=== PATIENT | male | born 1950 | race Two or more races ===

== ENCOUNTER 2021-03-05 09:11 | Observation (INO) | payer MEDICARE ==
[2021-03-03 16:48] LABS: BASOPHILS % 0.6 % (0.0-1.0); EOSINOPHILS # (AUTO) 0.1 (0.0-0.4); EOSINOPHILS % 1.5 % (0.0-6.0); HEMATOCRIT 34.9 % (38.2-49.6); HEMOGLOBIN 11.4 g/dL (14.0-18.0); LYMPHOCYTES # (AUTO) 1.3 (1.0-3.2); LYMPHOCYTES % 20.2 % (18.0-39.1); MEAN CORPUSCULAR HEMOGLOBIN 29.2 pg (28-32); MEAN CORPUSCULAR HGB CONC 32.7 g/dL (31-35); MEAN CORPUSCULAR VOLUME 89.5 fL (81-99); MONOCYTES # (AUTO) 0.5 (0.2-0.8); MONOCYTES % 7.1 % (4.4-11.3); NEUTROPHILS # (AUTO) 4.7 (2.1-6.9); NEUTROPHILS % 70.1 % (38.7-80.0); PLATELET COUNT 214 x10e3/uL (140-360); RED CELL DISTRIBUTION WIDTH 13.2 % (11.7-14.4)
[2021-03-03 16:49] LABS: ANION GAP 10.7 mmol/L (8-16); CALCIUM 8.4 mg/dL (8.4-10.2); CREATININE, SERUM 1.53 mg/dL (0.72-1.25); POTASSIUM 4.7 mmol/L (3.5-5.1)
[~2021-03-05] VITALS: Ht 165.1 cm; Wt 73.2 kg
[~2021-03-05 09:11] MED LIST: IOPAMIDOL 300MG/ML 50ML INFUS..BTL IV ONE
[2021-03-05] MEDS ORDERED: JANUVIA100 MG PO (09:46)
[2021-03-05] MEDS ORDERED: LOSARTAN POTASS50 MG PO (09:46)
[2021-03-05] MEDS ORDERED: FLOMAX0.4 MG PO (09:46)
[2021-03-05] MEDS ORDERED: MOBIC15 MG PO (09:46)
[2021-03-05] MEDS ORDERED: KETOROLAC PO (09:46)
[2021-03-05] MEDS ORDERED: TYLENOL # 31 EA PO (09:46)
[2021-03-05] MEDS ORDERED: METFORMIN HCL500 MG PO (09:46)
[2021-03-05] MEDS ORDERED: SODIUM CHLORIDE 0.9% 50ML 50 ML ONE (10:05)
[2021-03-05] MEDS ORDERED: CEFTRIAXONE 1 GM VIAL ONE (10:05)
[2021-03-05] MEDS ORDERED: FENTANYL CITRATE/PF 100MCG/2 ML INJ ONE ×2 (11:44→12:28)
[2021-03-05] MEDS ORDERED: ACETAMINOPHEN/CODEINE 300MG - 30MG TAB ONE (12:55)
[2021-03-05] MEDS ORDERED: PROPOFOL IV EMULSION 10 MG/ML 20 ML VIAL ONE (13:48)
[2021-03-05] MEDS ORDERED: DEXAMETHASONE SOD PHOS INJ 4 MG/ML VIAL ONE (13:48)
[2021-03-05] MEDS ORDERED: ONDANSETRON HCL INJ 2MG/ML 2ML 2 MG/ML VIAL ONE (13:48)
[2021-03-05] MEDS ORDERED: POVIDONE IODINE 0.05% 0.05 % ML PO ONE (13:48)
[2021-03-05] MEDS ORDERED: SEVOFLURANE INHAL SOLN 250 ML PEN BTL ONE (13:48)
[2021-03-05] MEDS ORDERED: LIDOCAINE HCL 2% LOCAL INJ 5 ML SDV VIAL INJ ONE (13:48)
[2021-03-05 16:00] VITALS: BP 139/91
[2021-03-05] MEDS: ACETAMINOPHEN/CODEINE 300MG - 30MG TAB PO PRN ×2 (16:17→21:20)
[2021-03-05 16:41] VITALS: BP 139/91
[2021-03-05] MEDS ORDERED: DEXTROSE 50% SYRINGE 50 ML IV PRN (16:45)
[2021-03-05] MEDS: INSULIN LISPRO 100 UNIT/1 ML 3ML VIAL SQ SCH ×2 (17:00→21:22)
[2021-03-05 22:30] VITALS: BP 139/91
[2021-03-05 22:50] VITALS: BP 130/89
[2021-03-06] VITALS (8 sets, daily range): BP systolic 127–168; BP diastolic 80–98
[2021-03-06] MEDS: ACETAMINOPHEN/CODEINE 300MG - 30MG TAB PO PRN ×3 (04:27→14:36)
[2021-03-06] MEDS: INSULIN LISPRO 100 UNIT/1 ML 3ML VIAL SQ SCH ×4 (07:30→21:15)
[2021-03-06] MEDS ORDERED: KETOROLAC TROMETHAMINE 10 MG TAB PO PRN (07:45)
[2021-03-06] MEDS: MELOXICAM 7.5 MG TAB PO SCH (08:58)
[2021-03-06] MEDS: TAMSULOSIN HCL 0.4 MG CAP PO SCH (08:58)
[2021-03-06] MEDS: LOSARTAN POTASSIUM 25 MG TAB PO SCH (08:59)
[2021-03-06] MEDS ORDERED: SITAGLIPTIN 100 MG TAB PO SCH (09:00)
[2021-03-06] MEDS ORDERED: METFORMIN HCL 500 MG TAB PO SCH (09:00)
[2021-03-06] MEDS ORDERED: LORAZEPAM INJ 2 MG/ML VIAL IV ONE (16:15)
[2021-03-06] MEDS ORDERED: MORPHINE SULFATE INJ 2 MG/ML SYR IV STA (16:46)
[2021-03-06] MEDS: LACTATED RINGER'S 1,000 ML INJ SCH (17:02)
[2021-03-07 01:17] VITALS: BP 137/91
[2021-03-07] MEDS: LACTATED RINGER'S 1,000 ML INJ SCH (05:42)
[2021-03-07 06:17] VITALS: BP 145/90
[2021-03-07] MEDS: INSULIN LISPRO 100 UNIT/1 ML 3ML VIAL SQ SCH ×3 (07:30→16:04)
[2021-03-07 08:15] VITALS: BP 146/89
[2021-03-07 08:30] VITALS: BP 146/89
[2021-03-07] MEDS: LOSARTAN POTASSIUM 25 MG TAB PO SCH (09:00)
[2021-03-07] MEDS: TAMSULOSIN HCL 0.4 MG CAP PO SCH (09:00)
[2021-03-07] MEDS: MELOXICAM 7.5 MG TAB PO SCH (09:00)
[2021-03-07] MEDS ORDERED: FENTANYL CITRATE/PF 100MCG/2 ML INJ ONE (12:26)
[2021-03-07] MEDS ORDERED: IOPAMIDOL 300MG/ML 50ML INFUS..BTL IV ONE (12:49)
[2021-03-07] MEDS ORDERED: SEVOFLURANE INHAL SOLN 250 ML PEN BTL ONE (13:52)
[2021-03-07] MEDS ORDERED: LIDOCAINE HCL 2% LOCAL INJ 5 ML SDV VIAL INJ ONE (13:52)
[2021-03-07] MEDS ORDERED: POVIDONE IODINE 0.05% 0.05 % ML PO ONE (13:52)
[2021-03-07] MEDS ORDERED: PROPOFOL IV EMULSION 10 MG/ML 20 ML VIAL ONE (13:52)
[2021-03-07 13:58] VITALS: BP 121/82
[2021-03-07] MEDS ORDERED: BISACODYL 5 MG TAB EC PO NR (14:45)
[2021-03-07 15:53] VITALS: BP 147/72
[2021-03-07] MEDS: ACETAMINOPHEN/CODEINE 300MG - 30MG TAB PO PRN (18:03)
== END 2021-03-07 18:09 | disposition home or self-care (01) ==
LOC: OR 09:11 → PACU V 14:29 → MED/SURG2 15:21
PROVIDERS: ADMIT Urology; ATTEND Urology
DX: N20.1 Calculus of ureter (principal); E11.9 Type 2 diabetes mellitus without complications; I10 Essential (primary) hypertension; F41.9 Anxiety disorder, unspecified; T83.83XA Hemorrhage due to genitourinary prosthetic devices, implants and grafts, initial encounter; R33.8 Other retention of urine; Z01.810 Encounter for preprocedural cardiovascular examination; Z01.818 Encounter for other preprocedural examination
CPT/HCPCS: 36415 ×4; 52001; 52310; 52332; 52352; 71046; 74420; 76000; 80048; 82948 ×3; 85025; 88300; 93005; C1726; C1769; C2617; G0378 ×3; J0696; J1100; J2001 ×2; J2060; J2270; J2405; J2704 ×2; J3010 ×2; J7121 ×2; Q9967 ×2